=== PATIENT | female | born 1990 | race African-American/Black ===

== ENCOUNTER 2020-03-19 17:08 | Emergency (ER) | payer OTHER ==
[~2020-03-19] VITALS: Ht 160 cm; Wt 64.4 kg
[~2020-03-19 17:08] MED LIST: ACCUNEB SO1.25 MG/1; ZANTAC 150MG T150 MG PO
[2020-03-19 17:57] LABS: ABSOLUTE NEUTROPHILS 3.6 thou/uL (1.4-8.2); BASOPHILS 0.1 % (0.0-2.0); EOSINOPHILS 0.1 % (0.0-3.0); HEMOGLOBIN 11.3 gm/dL (12.0-15.0); MCH 27.3 pg (26.0-34.0); MCHC 33.3 g/dL (28.0-37.0); MONOCYTES 12.4 % (1.0-8.0); PLATELET COUNT 158 thou/uL (150-400); POLYS 80.4 % (36.0-66.0); RBC 4.15 mil/uL (4.20-5.00); WBC 4.5 thou/uL (4.0-11.0)
[2020-03-19 18:12] LABS: ALBUMIN 3.9 g/dL (3.4-5.0); POTASSIUM 3.4 mmol/L (3.5-5.1); TOTAL BILIRUBIN 0.4 mg/dL (0.2-1.0); TOTAL PROTEIN 7.9 g/dL (6.4-8.2)
[2020-03-19 18:16] LABS: CALCIUM 8.4 mg/dL (8.5-10.1)
[2020-03-19 20:46] LABS: URINE BILIRUBIN NEGATIVE (Negative); URINE BLOOD TRACE (Negative); URINE CLARITY CLEAR; URINE COLOR YELLOW; URINE GLUCOSE-RANDOM* NEGATIVE (Negative); URINE KETONES TRACE (Negative); URINE LEUKOCYTES-REFLEX 1+ (Negative); URINE NITRITE-REFLEX NEGATIVE (Negative); URINE PROTEIN (DIPSTICK) NEGATIVE (Negative); URINE SPECIFIC GRAVITY 1.015 (1.005-1.035); URINE UROBILINOGEN 0.2 E.U./dl (0.2-1.0)
[2020-03-19 20:53] LABS: CASTS None Seen /LPF (None Seen); MUCUS 0-3 Light strn/LPF (None Seen); SQUAMOUS 4-10 Moderate /LPF (0-3); URINE RBC 0-2 Rare /HPF (0-2); URINE WBC-REFLEX 0-5 Rare /HPF (0-5)
[2020-03-19 20:54] LABS: CALCIUM OXALATE 0-3 Few /LPF (None Seen)
[2020-03-19] MEDS ORDERED: ONDANSETRON HCL4 M2 PO (21:14)
[2020-03-19] MEDS ORDERED: KEFLEX500 M1 PO (21:19)
[2020-03-19 21:27] VITALS: BP 129/73
== END 2020-03-19 21:29 | disposition home or self-care (01) ==
LOC: ER 17:08
PROVIDERS: Nurse Practitioner
DX: U07.1 COVID-19 (principal); J10.1 Influenza due to other identified influenza virus with other respiratory manifestations; R11.2 Nausea with vomiting, unspecified; N39.0 Urinary tract infection, site not specified; J45.909 Unspecified asthma, uncomplicated

== ENCOUNTER 2020-06-12 13:16 | Emergency (ER) | payer OTHER ==
[~2020-06-12] VITALS: Ht 160 cm; Wt 64.4 kg
[~2020-06-12 13:16] MED LIST changes: +KEFLEX500 M1 PO; +ONDANSETRON HCL4 M2 PO
[2020-06-12 13:45] LABS: HEMOGLOBIN 11.1 gm/dL (12.0-15.0); WBC 5.9 thou/uL (4.0-11.0)
[2020-06-12 13:47] LABS: ABSOLUTE NEUTROPHILS 4.8 thou/uL (1.4-8.2); BASOPHILS 0.3 % (0.0-2.0); EOSINOPHILS 0.2 % (0.0-3.0); HEMATOCRIT 34.1 % (37.0-47.0); LYMPHOCYTES 13.9 % (24.0-44.0); MCH 26.4 pg (26.0-34.0); MCHC 32.5 g/dL (28.0-37.0); MONOCYTES 4.2 % (1.0-8.0); PLATELET COUNT 162 thou/uL (150-400); POLYS 81.4 % (36.0-66.0); RBC 4.21 mil/uL (4.20-5.00); RDW 14.9 % (10.5-14.5)
[2020-06-12 13:53] LABS: CALCIUM 8.8 mg/dL (8.5-10.1); CREATININE 0.8 mg/dL (0.6-1.0); POTASSIUM 3.9 mmol/L (3.5-5.1)
[2020-06-12 13:59] LABS: ALBUMIN 4.2 g/dL (3.4-5.0); TOTAL BILIRUBIN 0.5 mg/dL (0.2-1.0)
[2020-06-12 14:59] LABS: URINE BILIRUBIN NEGATIVE (Negative); URINE BLOOD NEGATIVE (Negative); URINE CLARITY CLEAR; URINE COLOR YELLOW; URINE GLUCOSE-RANDOM* NEGATIVE (Negative); URINE KETONES NEGATIVE (Negative); URINE LEUKOCYTES-REFLEX NEGATIVE (Negative); URINE NITRITE-REFLEX NEGATIVE (Negative); URINE PROTEIN (DIPSTICK) NEGATIVE (Negative); URINE SPECIFIC GRAVITY 1.015 (1.005-1.035); URINE UROBILINOGEN 0.2 E.U./dl (0.2-1.0)
[2020-06-12] MEDS ORDERED: ZOFRAN ODT4 MG PO (15:45)
[2020-06-12 15:57] VITALS: BP 103/63
== END 2020-06-12 15:58 | disposition home or self-care (01) ==
LOC: ER 13:16
PROVIDERS: Physician Assistant
DX: K52.9 Noninfective gastroenteritis and colitis, unspecified (principal); R11.2 Nausea with vomiting, unspecified; J45.909 Unspecified asthma, uncomplicated